=== PATIENT | female | born 1965 | race Caucasian/White ===

== ENCOUNTER 2019-07-01 17:05 | Emergency (ER) | payer OTHER ==
[~2019-07-01] VITALS: Ht 162.6 cm; Wt 74.8 kg
[~2019-07-01 17:05] MED LIST: ASPI-817 PO; ATOR20TA38 PO; CEPH-443 PO; CORE10CR PO; FAMO40TA5 PO; GABA300C16 PO; GLIP10TA14 PO; HYDR-4011 PO; INSU100I33 SC; INSULIN SQ; LOSA50TA14 PO; METF100010 PO; MONT10TA24 PO; POLY17PO6 PO
[2019-07-01 17:15] VITALS: Ht 162.6 cm; Wt 74.8 kg
[2019-07-01] MEDS ORDERED: KETOROLAC 15 MG INJ IV STA (17:48)
[2019-07-01] MEDS ORDERED: SOD CHLORIDE 0.9% 1,000 ML IV ONE (18:00)
[2019-07-01] MEDS ORDERED: CEFTRIAXONE 1 GM/50 ML (PMX) 50 ML IVPB ONE (18:00)
[2019-07-01 20:37] VITALS: BP 110/83; PULSE 86; RESP 18
== END 2019-07-01 20:39 | disposition home or self-care (01) ==
LOC: E/R 17:05
DX: K80.20 Calculus of gallbladder without cholecystitis without obstruction (principal); I10 Essential (primary) hypertension; E11.9 Type 2 diabetes mellitus without complications; D64.9 Anemia, unspecified; N28.9 Disorder of kidney and ureter, unspecified; K59.00 Constipation, unspecified; N39.0 Urinary tract infection, site not specified; Z79.82 Long term (current) use of aspirin; Z79.4 Long term (current) use of insulin
CPT/HCPCS: 36415; 80053; 81003; 83690; 85025; 87086; 96365; 96366; 96375; J0696; J1885; J7030; Z7502